=== PATIENT | female | born 1950 | race Caucasian/White ===

== ENCOUNTER 2017-05-03 15:43 | Outpatient (CLI) | payer BC | END 2017-05-03 15:44 | disposition home or self-care (01) | LOC: BICMAMMO 15:43 | PROVIDERS: ATTEND Family Medicine | DX: Z12.31 Encounter for screening mammogram for malignant neoplasm of breast (principal) | CPT/HCPCS: 77063; 77067 ==

== ENCOUNTER 2018-05-05 15:12 | Outpatient (CLI) | payer BC | END 2018-05-05 15:13 | disposition home or self-care (01) | LOC: BICMAMMO 15:12 | PROVIDERS: ATTEND Family Medicine | DX: Z12.31 Encounter for screening mammogram for malignant neoplasm of breast (principal) | CPT/HCPCS: 77063; 77067 ==

== ENCOUNTER 2018-10-18 07:54 | Outpatient (CLI) | payer BC ==
--- NOTE | 2018-10-18 09:11 | MRI ---
MRI lumbar spine noncontrast: HISTORY: Intervertebral disc disorder with lumbosacral radiculopathy. Low back pain radiating down the left le g. Symptoms worsened with standing long period of time. COMPARISON: None FINDINGS: Appropriate T1 marrow signal intensity of the lumbar vertebra. Lumbar spine vertebral body height is maintained. No fracture. 3.4 mm of anterolisthesis of L4 upon L5. There is T1 marrow signal hypointensity with associated T2 and STIR hyperintensity involving the right facet at L4. Linear T1 a nd T2 hypointensity in the right facet may represent an associated pars defect. Left facet appears to have appropriate signal intensity. Possibility of a subtle chronic pars defect cannot be excluded. Appropriate signal intensity of the visualized paraspinal muscles. T2 hyperintensity in the right aditi al cortex, measuring 7 mm. T2 hyperintensity in the left hemipelvis measuring 3.3 cm, incompletely evaluated. Conus medullaris terminates at the inferior aspect of T12. T12-L1:Adequate disc hydration. No significant central canal stenosis. Neural foramina are patent. L1-L2:Adequate disc hydration. No significant central canal stenosis. Neural foramina are patent. L2-L3:Desiccation with mild to moderate loss of disc space height. Left and right paracentral disc bu lges, ligament flavum thickening and facet hypertrophy do not cause any significant stenosis of the thecal sac. However, there is partial obscuration of bilateral traversing L3 nerve roots secondary to disc material with resultant narrowing of the bilateral subarticular zones. Moderate right and mild left neural foraminal narrowing. L3-L4:Adequate disc hydration. Generalized disc bulge with a left subarticular component. Disc materi al obscures the traversing left L4 nerve root. Ligamentum flavum thickening and facet hypertrophy are noted. Mild central canal stenosis. Mild right foraminal narrowing. Left neural foramen is patent . L4-L5:Adequate disc hydration. Mild loss of disc space height. Generalized disc bulge with a left and right subarticular component. Ligamentum flavum thickening and facet hypertrophy are noted. Mild fluid in both facet joints. Overall there is mild central canal stenosis. There is mass effect withou t obscuration of the traversing right L5 nerve root. Mass effect with obscuration of the traversing left L5 nerve root secondary to disc material. There is a small component of disc extrusion inferiorl y into the left subarticular zone Moderate right and moderate to severe left neural foraminal narrowing. L5-S1:Mild loss of disc space height. Generalized disc bulge does not cause any significant stenosis of the thecal sac. Right neural foramen is mildly narrowed. Moderate to severe left foraminal narrowing due to disc material as well as facet hypertrophy. IMPRESSION: 1. Multilevel subarticular narrowing due to degenerative changes. Obscuration of the traversing left L4 nerve root and left L5 nerve root as described above. Disc material abuts but does not obscure the traversing right L5 nerve root. 2. Moderate right and moderate to severe left foraminal narrowing at L4-L5. Moderate to severe left foraminal narrowing at L5-S1. 3. Grade 1 anterolisthesis of L4 upon L5. 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 The right pars defect appears to be acute with evidence of edema. Transcribed Date/Time: 10/18/2018 9:33 AM
--- NOTE | 2018-10-18 14:49 | ULT ---
ULTRASOUND DOPPLER DUPLEX VENOUS LEFT LOWER EXTREMITY: DATE: 10/18/2018 HISTORY: 67-year-old female with left leg pain, calf. TECHNIQUE: Grayscale, color-flow, and spectral analysis, of major veins of left lower extremity. FINDINGS: There is demonstration of blood flow with normal compressibility, of the left common femoral, profund a femoral, greater saphenous, femoral, popliteal, and posterior tibial, veins. IMPRESSION: Negative. No deep venous thrombosis of left lower extremity.
== END 2018-10-18 07:55 | disposition home or self-care (01) ==
LOC: SCSMRI 07:54
PROVIDERS: ATTEND Specialist
DX: M51.17 Intervertebral disc disorders with radiculopathy, lumbosacral region (principal); M79.662 Pain in left lower leg; M47.26 Other spondylosis with radiculopathy, lumbar region; M48.061 Spinal stenosis, lumbar region without neurogenic claudication; M48.07 Spinal stenosis, lumbosacral region; M43.17 Spondylolisthesis, lumbosacral region
CPT/HCPCS: 72148

== ENCOUNTER 2019-05-08 15:02 | Outpatient (CLI) | payer BC ==
--- NOTE | 2019-05-08 15:19 | MMO ---
Bilateral MAMMO Bilat Screen [facility]. CLINICAL HISTORY: Patient is 68 years old and is seen for screening. The patient has no family history of breast cancer. The patient has no personal history of cancer. VIEWS: The views performed were: bilateral craniocaudal with tomosynthesis and bilateral mediolateral oblique with tomosynthesis. FILMS COMPARED: The present examination has been compared to prior imaging studies performed at [facility] on 04/29/2015, 04/30/2016, 05/03/2017 and 05/05/2018. This study has been interpreted with the assistance of computer-aided detection. MAMMOGRAM FINDINGS: There are scattered fibroglandular densities. There are no suspicious masses, suspicious calcifications, or new areas of architectural distortion. IMPRESSION: THERE IS NO MAMMOGRAPHIC EVIDENCE OF MALIGNANCY. A ROUTINE FOLLOW-UP MAMMOGRAM IN 1 YEAR IS RECOMMENDED. THE RESULTS OF THIS EXAM WERE SENT TO THE PATIENT. ACR BI-RADS Category 1 - Negative MAMMOGRAPHY NOTE: 1. A negative mammogram report should not delay a biopsy if a dominant of clinically suspicious mass is present. 2. Approximately 10% to 15% of breast cancers are not detected by mammography. 3. Adenosis and dense breasts may obscure an underlying neoplasm. Reported by: GENIA RAIN MD Electonically Signed: [id number]
== END 2019-05-08 15:03 | disposition home or self-care (01) ==
LOC: BICMAMMO 15:02
PROVIDERS: ATTEND Family Medicine
DX: Z12.31 Encounter for screening mammogram for malignant neoplasm of breast (principal)
CPT/HCPCS: 77063; 77067

== ENCOUNTER 2020-05-10 14:39 | Outpatient (CLI) | payer BC ==
--- NOTE | 2020-05-10 15:09 | MMO ---
Bilateral MAMMO Bilat Screen [facility]. CLINICAL HISTORY: Patient is 69 years old and is seen for screening. The patient has no family history of breast cancer. The patient has no personal history of cancer. VIEWS: The views performed were: bilateral craniocaudal with tomosynthesis and bilateral mediolateral oblique with tomosynthesis. FILMS COMPARED: The present examination has been compared to prior imaging studies performed at [facility] on 04/30/2016, 05/03/2017, 05/05/2018 and 05/08/2019. This study has been interpreted with the assistance of computer-aided detection. MAMMOGRAM FINDINGS: There are scattered fibroglandular densities. There are no suspicious masses, suspicious calcifications, or new areas of architectural distortion. IMPRESSION: THERE IS NO MAMMOGRAPHIC EVIDENCE OF MALIGNANCY. A ROUTINE FOLLOW-UP MAMMOGRAM IN 1 YEAR IS RECOMMENDED. THE RESULTS OF THIS EXAM WERE SENT TO THE PATIENT. ACR BI-RADS Category 1 - Negative MAMMOGRAPHY NOTE: 1. A negative mammogram report should not delay a biopsy if a dominant of clinically suspicious mass is present. 2. Approximately 10% to 15% of breast cancers are not detected by mammography. 3. Adenosis and dense breasts may obscure an underlying neoplasm. Reported by: SOCORRO NICHOLS MD Electonically Signed: [id number]
== END 2020-05-10 14:40 | disposition home or self-care (01) ==
LOC: BICMAMMO 14:39
PROVIDERS: ATTEND Family Medicine
DX: Z12.31 Encounter for screening mammogram for malignant neoplasm of breast (principal)
CPT/HCPCS: 77063; 77067

== ENCOUNTER 2021-05-13 15:17 | Outpatient (CLI) | payer BC | END 2021-05-13 15:18 | disposition home or self-care (01) | LOC: BICMAMMO 15:17 | PROVIDERS: ATTEND Family Medicine | DX: Z12.31 Encounter for screening mammogram for malignant neoplasm of breast (principal) | CPT/HCPCS: 77063; 77067 ==

== ENCOUNTER 2022-05-21 15:04 | Outpatient (CLI) | payer BC | END 2022-05-21 15:05 | disposition home or self-care (01) | LOC: BICMAMMO 15:04 | PROVIDERS: ATTEND Family Medicine | DX: Z12.31 Encounter for screening mammogram for malignant neoplasm of breast (principal) | CPT/HCPCS: 77063; 77067 ==

== ENCOUNTER 2023-05-27 14:17 | Outpatient (CLI) | payer BC | END 2023-05-27 14:18 | disposition home or self-care (01) | LOC: BICMAMMO 14:17 | PROVIDERS: ATTEND Family Medicine | DX: Z12.31 Encounter for screening mammogram for malignant neoplasm of breast (principal) | CPT/HCPCS: 77063; 77067 ==

== ENCOUNTER 2024-06-01 15:13 | Outpatient (CLI) | payer BC | END 2024-06-01 15:14 | disposition home or self-care (01) | LOC: BICMAMMO 15:13 | PROVIDERS: ATTEND Family Medicine | DX: Z12.31 Encounter for screening mammogram for malignant neoplasm of breast (principal) | CPT/HCPCS: 77063; 77067 ==